=== PATIENT | male | born 1955 | race Caucasian/White ===

== ENCOUNTER → 2017-11-02 | Outpatient (CLI) | payer OTHER ==
[~2017-11-02] MED LIST: PERCOCET 5/31 TABLET PO
== END | disposition home or self-care (01) ==
LOC: CDC 10:46
DX: I10 Essential (primary) hypertension (principal)
CPT/HCPCS: 93000

== ENCOUNTER → 2018-03-05 | Outpatient (CLI) | payer OTHER | END | disposition home or self-care (01) | LOC: CDC 10:45 | DX: Z01.810 Encounter for preprocedural cardiovascular examination (principal); I10 Essential (primary) hypertension; I49.8 Other specified cardiac arrhythmias; I45.4 Nonspecific intraventricular block | CPT/HCPCS: 93000 ==

== ENCOUNTER 2018-04-01 21:15 | Inpatient (IN) | payer OTHER ==
[~2018-04-01] VITALS: Ht 180.3 cm; Wt 109.1 kg
[~2018-04-01 21:15] MED LIST changes: +LIPITOR20 MG PO; +LO-DOSE ASPIRIN81 M2 PO; +NORVASC5 MG PO; +VIAGRA100 MG PO; +VITAMIN D-32000 UNI2 PO; +ZESTORETIC 20-1 EAC2 PO
[2018-04-02 10:35] VITALS: BP 132/80
[2018-04-02 16:38] VITALS: BP 143/88
[2018-04-02 20:11] VITALS: BP 137/76
[2018-04-03 00:05] VITALS: BP 138/79
[2018-04-03 03:50] VITALS: BP 132/83
[2018-04-03 07:40] VITALS: BP 135/81
[2018-04-03 09:15] LABS: HEMATOCRIT 37.9 % (38.0-50.0); MCV 89.8 FL (86-99)
[2018-04-03 09:18] LABS: HEMOGLOBIN 12.5 G/DL (12.5-16.6)
[2018-04-03] MEDS ORDERED: ELIQUIS2.5 MG PO (09:24)
[2018-04-03] MEDS ORDERED: ENDOCET 5-3251 EACH PO (09:24)
[2018-04-03 09:39] LABS: CHLORIDE 99 MEQ/L (99-109); GFR ESTIMATE (CALCULATED) > 59 mL/min/ (58.99-99999); GLUCOSE 187 mg/dL (70-99); POTASSIUM 4.2 MEQ/L (3.7-5.4); SODIUM 137 MEQ/L (136-147); UREA NITROGEN (BUN) 17 mg/dL (9-23)
[2018-04-03 16:25] VITALS: BP 129/80
[2018-04-03 23:09] VITALS: BP 158/80
[2018-04-04 06:46] LABS: HEMATOCRIT 35.8 % (38.0-50.0); HEMOGLOBIN 11.8 G/DL (12.5-16.6); MCV 89.9 FL (86-99)
[2018-04-04 07:45] VITALS: BP 128/78
== END 2018-04-04 12:00 | disposition home or self-care (01) | DRG 470 ==
LOC: ENRESERV 21:15 → 2SOUTH 04-02 09:53 → ENRESERV 04-02 14:08 → 3EAST 04-02 16:23
PROVIDERS: Physician Assistant
PROC: 0SRD0J9 Replacement of Left Knee Joint with Synthetic Substitute, Cemented, Open Approach (ICD-10-PCS; principal; 2018-04-02)
DX: M17.12 Unilateral primary osteoarthritis, left knee (principal); Z79.82 Long term (current) use of aspirin; I10 Essential (primary) hypertension
CPT/HCPCS: 80048; 85014; 85018; C1713; J0131; J0690; J1100; J1885; J2250; J2405; J2795; J3010; J3475; J7050; J7120; S0020